=== PATIENT | female | born 1990 | race Two or more races ===

== ENCOUNTER 2023-02-28 15:13 | Emergency (ER) | payer MEDICAID ==
[~2023-02-28] VITALS: Ht 162.6 cm; Wt 68.6 kg
[2023-02-28 15:46] VITALS: BP 125/86; PULSE 79; RESP 18; TEMP 97.5; O2SAT 97
[2023-02-28] MEDS ORDERED: CIPR0.3S67 OP (16:13)
== END 2023-02-28 16:20 | disposition home or self-care (01) ==
LOC: ER 15:13
DX: S05.02XA Injury of conjunctiva and corneal abrasion without foreign body, left eye, initial encounter (principal); Z88.0 Allergy status to penicillin; X58.XXXA Exposure to other specified factors, initial encounter; Y93.89 Activity, other specified; Y92.89 Other specified places as the place of occurrence of the external cause; Y99.8 Other external cause status
CPT/HCPCS: 65220